=== PATIENT | male | born 1955 | race Caucasian/White ===

== ENCOUNTER 2017-06-09 12:34 | Observation (INO) | payer BC ==
--- NOTE | 2017-06-09 12:53 | CPEKG ---
Heart Rate: 60 RR Interval: 1000 P-R Interval: 132 QRSD Interval: 96 QT Interval: 444 QTC Interval: 444 P [place]: 50 QRS [place]: 58 T Wave [place]: 51 EKG Severity - OTHERWISE NORMAL ECG - EKG Impression: SINUS ARRHYTHMIA, RATE 52-72 Electronically Signed By: Hany Dalton 09-Jun-2017 14:33:52
--- NOTE | 2017-06-09 13:07 | EDPHY ---
H & P Stated Complaint: Here for possible pacemaker after abnl loop recorder reading on Sat Time Seen by Provider: 06/09/17 12:55 HPI/ROS: Chief Complaint: Syncope HPI: 62-year-old male had 2 syncopal episodes 2 days ago. He has history of syncope 2 years ago and had extensive workup by Dr. Sweeney which was negative. At that time he had an implantable heart monitor placed. He received phone call from his cardiology office today indicating that he had had 2 sinus pauses, 23 and 28 seconds in length. The instructed him to come the hospital to arrangements for pacemaker placement. Patient denies any injuries. He has felt normal since Friday. No fevers or chills. No chest pain. No shortness of breath. No palpitations. ROS: 10 point Review of Systems is negative except as noted in the HPI. PMH: Syncope Social History: Occasional cigars, occasional alcohol, occasional marijuana Family History: Patient is adopted Physical Exam: Gen: Awake, Alert, No Distress HEENT: Nose: no rhinorrhea Eyes: PERRLA, EOMI Mouth: Moist mucosa Neck: Supple, no JVD Chest: nontender, lungs clear to auscultation Heart: S1, S2 normal, no murmur Abd: Soft, non-tender, no guarding Back: no CVA tenderness, no midline tenderness Ext: no edema, non-tender Skin: no rash Neuro: CN II-XII intact, Sensation grossly intact, Strength 5/5 in bilateral upper and lower extremities - Personal History Current Tetanus Diphtheria and Acellular Pertussis (TDAP): No - Medical/Surgical History Hx Asthma: No Hx Chronic Respiratory Disease: No Hx Diabetes: No Hx Cardiac Disease: Yes Hx Renal Disease: No Hx Cirrhosis: No Hx Alcoholism: No Hx HIV/AIDS: No Hx Splenectomy or Spleen Trauma: No Other PMH: abnl heart rate - Social History Smoking Status: Never smoked Constitutional: Initial Vital Signs Temperature (C) 36.7 C 06/09/17 12:37 Heart Rate 58 L 06/09/17 12:37 Respiratory Rate 16 06/09/17 12:37 Blood Pressure 127/80 H 06/09/17 12:37 O2 Sat (%) 97 06/09/17 12:37 O2 Delivery Mode Room Air Allergies/Adverse Reactions: No Known Allergies Allergy (Verified 06/09/17 12:41) Home Medications: Medication Instructions Recorded Aspirin EC [Aspirin EC 81 mg (*)] 81 mg PO DAILY 06/09/17 Medical Decision Making - Diagnostics EKG Interpretation: ECG time 12:50 p.m. p.m.. Sinus arrhythmia with a rate of 60, normal axis, normal intervals, no acute ECG changes. ED Course/Re-evaluation: Discussed with Dr. Winkler. Patient to go to the laboratory veterinarian for pacemaker placement. Departure - Departure Disposition: To OP Cath/Surgery Clinical Impression: Syncope Condition: Fair Referrals: ABELINO CASTILLO [Primary Care Provider] - As per Instructions
[2017-06-09 13:19] LABS: % IMMATURE GRANULYOCYTES 0.5 % (0.0-1.1); ABSOLUTE IMMATURE GRANULOCYTES 0.03 10^3/uL (0.00-0.10); ADD DIFF? NO; ADD MORPH? NO; ADD SCAN? NO; ATYPICAL LYMPHOCYTE FLAG 10 (0-99); FRAGMENT RBC FLAG 0 (0-99); HEMATOCRIT 45.7 % (40.0-51.0); HEMOGLOBIN 16.1 g/dL (13.7-17.5); LEFT SHIFT FLG 0 (0-99); LIPEMIA HEMOLYSIS FLAG 90 (0-99); MEAN CELL HEMOGLOBIN CONCENTR. 35.2 g/dL (32.4-36.7); MEAN CELL VOLUME 93.6 fL (81.5-99.8); MEAN PLATELET VOLUME 10.6 fL (8.7-11.7); PLATELET CLUMPS FLAG 0 (0-99); PLATELET COUNT 200 10^3/uL (150-400); RED BLOOD CELL COUNT 4.88 10^6/uL (4.40-6.38); RED CELL DISTRIBUTION WIDTH 11.9 % (11.5-15.2)
[2017-06-09] MEDS ORDERED: BACITRACIN IRRIGATION/NS 50,000 UNITS/1,000 ML BTL IRR ONE (13:25)
[2017-06-09] MEDS ORDERED: DIAZEPAM 5 MG TAB PO ONE (13:25)
[2017-06-09] MEDS ORDERED: ceFAZolin 2 GM/SWFI 2 GM/20 ML SYR IVP ONE (13:25)
[2017-06-09] MEDS ORDERED: NS 1,000 ML IV ONE (13:25)
[2017-06-09] MEDS ORDERED: diphenhydrAMINE 25 MG CAP PO ONE (13:25)
[2017-06-09 13:28] LABS: ANION GAP 14 mEq/L (8-16); CALCIUM 9.3 mg/dL (8.5-10.4); CARBON DIOXIDE 27 mEq/l (22-31); CHLORIDE 103 mEq/L (97-110); CREATININE 0.9 mg/dL (0.7-1.3); GLOMERULAR FILTRATION RATE > 60; GLUCOSE 92 mg/dL (70-100); POTASSIUM 4.2 mEq/L (3.5-5.2); SODIUM 144 mEq/L (134-144)
[2017-06-09] MEDS ORDERED: MIDAZOLAM 2 MG/2 ML VIAL ONE ×3 (14:42→15:57)
[2017-06-09] MEDS ORDERED: fentaNYL 100 MCG/2 ML INJ ONE ×2 (14:42→15:29)
[2017-06-09] MEDS ORDERED: LIDOCAINE 1% 300 MG/30 ML SDV ONE ×2 (14:42→15:17)
[2017-06-09] MEDS ORDERED: LIDO/EPI 1% **for epidural** 30 ML SDV ONE (14:43)
[2017-06-09] MEDS ORDERED: BUPIVACAINE 0.5% 30 ML SDV ONE (14:43)
[2017-06-09] MEDS ORDERED: IOPAMIDOL (ISOVUE-300) 100 ML BTL ONE (14:44)
--- NOTE | 2017-06-09 15:02 | PDPROPOC ---
Sedation Plan of Care Sedation Plan of Care: vital signs stable, mental status noted, patient educated of risks, benefits, alternatives, patient can tolerate sedation ASA Classification: ASA 4 Planned drugs: fentanyl, midazolam Mallampati Score: Class 1 Mallampati Reference Image: Patient passed 3-3-2 rule?: Yes
--- NOTE | 2017-06-09 15:13 | PDGENHP ---
History and Physical - Chief Complaint Syncope - History of Present Illness Patient is a 62 y/o male with unremarkable past cardiovascular history (no CAD, HTN, HLP, or DM), who had a syncopal event over the weekend. During this event , the patient triggered his LINQ recorder. This morning, when down loading the data, it was noted that two, protracted pauses of beyond 20 seconds were noted. In light of these events, the patient was told to go to the ER for discussion about pacer. No cardiovascular complaints of chest pains or pressure. No PND or orthopnea. No prescription mediations. The last time similar event was noted was about two years ago (at the time that the LINQ was implanted). Since the event on Friday, the patient has not had any further symptoms. Family was present with the patient in the CVC today. History Information - Allergies/Home Medication List Allergies/Adverse Reactions: No Known Allergies Allergy (Verified 06/09/17 12:41) Home Medications: Aspirin EC [Aspirin EC 81 mg (*)] 81 mg PO DAILY 06/09/17 [Last Taken 06/08/17] Cholecalciferol Vit D3 [Vitamin D3 2000 units tab (OTC)] 10,000 units PO DAILY 06/09/17 [Last Taken 06/08/17] [place]-3 Fatty Acids [Fish Oil 1000 mg (*)] 2,000 mg PO DAILY 06/09/17 [Last Taken 06/08/17] I have personally reviewed and updated: family history, medical history, social history, surgical history - Past Medical History no pertinent PMH - Surgical History Reports: no pertinent surgical hx - Family History Positive for: non-pertinent - Social History Smoking Status: Current some day smoker Alcohol Use: None Drug Use: None Review of Systems Review of Systems: ROS: 10pt was reviewed & negative except for what was stated in HPI & below Constitutional: Reports: no symptoms EENMT: Reports: no symptoms Cardiac: Reports: syncope Respiratory: Reports: no symptoms Gastrointestinal: Reports: no symptoms Genitourinary: Reports: no symptoms Muscolosketal: Reports: no symptoms Skin: Reports: no symptoms Neurological: Reports: no symptoms Hematologic/Lymphatic: Reports: no symptoms Immunologic/Allergy: Reports: no symptoms Physical Exam Physical Exam: Temp Pulse Resp BP Pulse Ox 37.1 C 61 18 151/90 H 95 06/09/17 13:29 11/20/17 13:29 06/09/17 13:29 06/09/17 13:29 06/09/17 13:29 Constitutional: no apparent distress, appears nourished Eyes: PERRL Ears, Nose, Mouth, Throat: moist mucous membranes Cardiovascular: regular rate and rhythym, No systolic murmur, No JVD Peripheral Pulses: 2+: dorsalis-pedis (R), dorsalis-pedis (L) Respiratory: no respiratory distress Gastrointestinal: normoactive bowel sounds Skin: warm Musculoskeletal: full muscle strength, no muscle tenderness, normal joint ROM Neurologic: AAOx3, sensation intact bilaterally, CN II-XII Intact Psychiatric: interacting appropriately, not anxious, not encephalopathic Lab Data & Imaging Review 06/09/17 12:55 06/09/17 12:55 WBC 5.91 10^3/uL (3.80-9.50) 06/09/17 12:55 RBC 4.88 10^6/uL (4.40-6.38) 06/09/17 12:55 Hgb 16.1 g/dL (13.7-17.5) 06/09/17 12:55 Hct 45.7 % (40.0-51.0) 06/09/17 12:55 MCV 93.6 fL (81.5-99.8) 06/09/17 12:55 MCH 33.0 pg (27.9-34.1) 06/09/17 12:55 MCHC 35.2 g/dL (32.4-36.7) 06/09/17 12:55 RDW 11.9 % (11.5-15.2) 06/09/17 12:55 Plt Count 200 10^3/uL (150-400) 06/09/17 12:55 MPV 10.6 fL (8.7-11.7) 06/09/17 12:55 Neut % (Auto) 65.3 % (39.3-74.2) 06/09/17 12:55 Lymph % (Auto) 24.4 % (15.0-45.0) 06/09/17 12:55 [place] % (Auto) 8.3 % (4.5-13.0) 06/09/17 12:55 Eos % (Auto) 0.7 % (0.6-7.6) 06/09/17 12:55 Baso % (Auto) 0.8 % (0.3-1.7) 06/09/17 12:55 Nucleat RBC Rel Count 0.0 % (0.0-0.2) 06/09/17 12:55 Absolute Neuts (auto) 3.86 10^3/uL (1.70-6.50) 06/09/17 12:55 Absolute Lymphs (auto) 1.44 10^3/uL (1.00-3.00) 06/09/17 12:55 Absolute Monos (auto) 0.49 10^3/uL (0.30-0.80) 06/09/17 12:55 Absolute Eos (auto) 0.04 10^3/uL (0.03-0.40) 06/09/17 12:55 Absolute Basos (auto) 0.05 10^3/uL (0.02-0.10) 06/09/17 12:55 Absolute Nucleated RBC 0.00 10^3/uL (0-0.01) 06/09/17 12:55 Immature Gran % 0.5 % (0.0-1.1) 06/09/17 12:55 Immature Gran # 0.03 10^3/uL (0.00-0.10) 06/09/17 12:55 Sodium 144 mEq/L (134-144) 06/09/17 12:55 Potassium 4.2 mEq/L (3.5-5.2) 06/09/17 12:55 Chloride 103 mEq/L (97-110) 06/09/17 12:55 Carbon Dioxide 27 mEq/l (22-31) 06/09/17 12:55 Anion Gap 14 mEq/L (8-16) 06/09/17 12:55 BUN 15 mg/dL (7-23) 06/09/17 12:55 Creatinine 0.9 mg/dL (0.7-1.3) 06/09/17 12:55 Estimated GFR > 60 06/09/17 12:55 Glucose 92 mg/dL (70-100) 06/09/17 12:55 Calcium 9.3 mg/dL (8.5-10.4) 06/09/17 12:55 Assessment & Plan Assessment: Syncope (Acute) Patient is a 62 y/o male with a syncopal event over the weekend. LINQ device recorded two >20 second pauses. No further symptoms since. Patient has been scheduled for PPM today. Plan: PPM implant today. LINQ explant prior.
[2017-06-09 15:36] LABS: INR 1.04 (0.83-1.16); PROTIME(PATIENT) 13.5 SEC (12.0-15.0)
[2017-06-09] MEDS ORDERED: ACETAMINOPHEN 325 MG TAB PO PRN (17:15)
[2017-06-09] MEDS ORDERED: TEMAZEPAM 15 MG CAP PO PRN (17:16)
--- NOTE | 2017-06-09 17:36 | SUROPNOTE ---
[facility] Operative Report - Surgery PROCEDURE (1) LINQ EXPLANT (2) PPM IMPLANT (3) VENOGRAM INDICATION: Protracted pause (>20 seconds) noted on LINQ monitor PROCEDURE DETAILS: After consent was obtained, the patient was brought to the cardiac label folder and placed on table in usual sterile fashion. Lidocaine was used for local anesthetic to the region of the LINQ. A small incision to the medial aspect of the LINQ was made, and the device was explanted (SN: [id number]). Four leigh ann were used to close the small incision. Scrub was broken, and the patient was redressed for the second procedure. A venogram was performed to isolate the left subclavian vein. Lidocaine was used for the left subclavian region. Two separate sticks were performed without difficulty into the left subclavian vein. Following this procedure, a small pocket was created and the wires were pulled into the pocket. A pocket was created using blunt dissection and a visitech soaked in Bacitracin was placed into the pocket. The ventricular lead was placed first under fluoroscopy viewing. RV lead S#: [id number] and sutured into position capture was at 0.5V@ 0.5 ms, 0.6 mA and sensing was 8.2 mV 2.3 V/s with imp at 529 ohms The atrial lead was placed second under fluoroscopy RA lead S#: [id number] and sutured into position capture was at 0.7V@ 0.5 ms, 1.4 mA and sensing was 3.7 mV 1.3 V/s and imp at 487 ohm The visitech was explanted and the pocket was inspected for haemostasis. The device was implanted and sutured into position after aggressive pocket flushing with bacitracin. The pocket was closed with 4-0, 3-0, 2-0 No complications were appreciated CXR this evening (post) and in the morning (PA and LAT) are pending AM interrogation also pending.
--- NOTE | 2017-06-09 18:01 | CPEKG ---
Heart Rate: 51 RR Interval: 1176 P-R Interval: 128 QRSD Interval: 86 QT Interval: 452 QTC Interval: 417 P [place]: 33 QRS [place]: 60 T Wave [place]: 39 EKG Severity - NORMAL ECG - EKG Impression: SINUS RHYTHM Electronically Signed By: Krunal Camargo 10-Jun-2017 15:39:36
[2017-06-09 23:43] VITALS: TEMP 98.1
[2017-06-10 06:03] LABS: % IMMATURE GRANULYOCYTES 0.3 % (0.0-1.1); ABSOLUTE IMMATURE GRANULOCYTES 0.02 10^3/uL (0.00-0.10); ADD DIFF? NO; ADD MORPH? NO; ADD SCAN? NO; ATYPICAL LYMPHOCYTE FLAG 0 (0-99); FRAGMENT RBC FLAG 0 (0-99); HEMATOCRIT 40.9 % (40.0-51.0); HEMOGLOBIN 14.1 g/dL (13.7-17.5); LEFT SHIFT FLG 0 (0-99); LIPEMIA HEMOLYSIS FLAG 90 (0-99); MEAN CELL HEMOGLOBIN 32.1 pg (27.9-34.1); MEAN CELL HEMOGLOBIN CONCENTR. 34.5 g/dL (32.4-36.7); MEAN CELL VOLUME 93.2 fL (81.5-99.8); MEAN PLATELET VOLUME 11.5 fL (8.7-11.7); PLATELET CLUMPS FLAG 0 (0-99); PLATELET COUNT 169 10^3/uL (150-400); RED BLOOD CELL COUNT 4.39 10^6/uL (4.40-6.38); RED CELL DISTRIBUTION WIDTH 11.9 % (11.5-15.2)
[2017-06-10 06:22] LABS: ANION GAP 13 mEq/L (8-16); CALCIUM 8.9 mg/dL (8.5-10.4); CARBON DIOXIDE 23 mEq/l (22-31); CHLORIDE 106 mEq/L (97-110); CREATININE 0.9 mg/dL (0.7-1.3); GLOMERULAR FILTRATION RATE > 60; GLUCOSE 84 mg/dL (70-100); POTASSIUM 4.2 mEq/L (3.5-5.2); SODIUM 142 mEq/L (134-144)
[2017-06-10] MEDS ORDERED: FLU VACC QS 2017-18 (3YR+)/PF 0.5 ML SYR (FLUARIX QUAD) IM ONE (07:23)
[2017-06-10] MEDS ORDERED: PNEUMOCOCCAL 0.5ML VACCINE VIAL IM ONE (07:23)
[2017-06-10 07:54] VITALS: BP 142/99; PULSE 60; RESP 14; O2SAT 95
--- NOTE | 2017-06-10 08:39 | CPEKG ---
Heart Rate: 71 RR Interval: 845 P-R Interval: 132 QRSD Interval: 88 QT Interval: 392 QTC Interval: 426 P [place]: 57 QRS [place]: 70 T Wave [place]: 46 EKG Severity - NORMAL ECG - EKG Impression: SINUS RHYTHM Electronically Signed By: Krunal Camargo 10-Jun-2017 15:39:31
[2017-06-10] MEDS ORDERED: ASPIRIN EC 81 MG TAB PO SCH (09:00)
--- NOTE | 2017-06-10 12:41 | GDS ---
[f rep st] DISCHARGE SUMMARY ADMISSION DIAGNOSES: 1. Syncope. 2. Twenty-three seconds of noted asystole on LINQ monitor. DISCHARGE DIAGNOSES: 1. Twenty-three seconds of asystole. 2. Status post permanent pacemaker implantation. PROCEDURES DONE DURING HOSPITALIZATION: 1. Electrocardiogram. 2. Permanent pacemaker implantation, [employer] [place] device with [employer] [place] atrial and ventricular lead impla ntation. 3. LINQ explant. 4. Chest x-ray. BRIEF HISTORY: Please see H and P. Briefly, the patient is a 62-year-old male with unremarkable car diovascular history, with reporting ongoing syncopal events, with previous loop recorder implantation , recently had a syncopal event over the weekend, noted to be 23 seconds of asystole. Due to his syn copal event, and significant pauses noted on LINQ recorder, he was brought to the hospital for perman ent pacemaker implantation. HOSPITAL COURSE: The patient was admitted through CVC, prepped for procedure, and taken to the [facility] catheterization lab, where Dr. Winkler successfully implanted a dual-chamber [employer] [place] pacemaker wit h atrial and ventricular leads, both [place]. No complications. The patient was taken back to e CVC, and ultimately to the PCU for overnight observation. Throughout the night, the patient has re mained in sinus rhythm with no malignant arrhythmias or pauses noted. He denies any chest pain or sh ortness of breath. He has been up and walking the unit without difficulties. PHYSICAL EXAMINATION: GENERAL APPEARANCE: A medium built, well-groomed, male. He is aler t and oriented to person, place, time, situation. Appears to be under no acute distress. CURRENT CEZAR SIGNS: Blood pressure 142/83, heart rate is 60, currently sinus rhythm, respirations 14, saturat ing 95%, temperature 36.7 degrees Celsius. HEENT: Head is normocephalic. Lips, tongue are pink and moist with no signs of cyanosis. Conjunctivae pink. NECK: Trachea is midline, +2 carotid pulses b ilateral. No auscultated bruits. No jugular vein distention. RESPIRATORY: Lungs clear to ausculta tion. No rhonchi, rales or wheezes. No accessory muscle use. No intercostal muscle retraction note d. CARDIAC: Regular rate, regular rhythm. S1, S2. No S3, S4, gallops, rubs or murmur noted. ABDO MEN: Soft, nontender, bowel sounds x4 quadrants. No organomegaly. No palpable masses. SKIN: [place] , warm, dry. No cyanosis. No clubbing. No peripheral edema. VASCULAR: +2 carotids bilateral, +2 radials bilateral, +2 dorsal pedal and posterior tibial pulses bilateral. Pacemaker insertion site, left anterior chest just distal clavicle incision intact with Steri-Strips, more medial at left anter ior chest. LINQ recorder removal and incision. Incision intact with leigh ann. Both sites without re dness, swelling, drainage, ecchymosis or hematoma. Dressing change done on both sites at this time. LABORATORY STUDIES: Laboratory studies drawn today show WBC 6.47, hemoglobin 14.1, hematocrit of 40. 9, platelet count of 169, sodium is 142, potassium 4.2, chloride 106, CO2 of 23, BUN 18, creatinine 0 .9, glucose 84, calcium 8.9. STUDIES: Permanent pacemaker implantation, as mentioned above. Chest x-ray done this morning showin g no delayed pneumothorax. No acute cardiopulmonary process. Electrocardiogram done this morning sh owing full sinus rhythm, normal axis. No ST or T-wave abnormalities suggesting of ischemia. [facility] Des[facility] e rep interrogated the pacemaker this morning, showing normal device functioning. DISCHARGE DISPOSITION: The patient will be discharged home in stable condition. He is under activit y restrictions of not lifting more than 10 pounds for the next week, and no strenuous activities for the next 2 weeks. He is also not to lift the left arm higher than shoulder height for the next 6 wee ks. He is encouraged to use a shoulder immobilizer for the next 48 hours and p.r.n. for the next 6 w eeks. DISCHARGE MEDICATIONS: Please see discharge med reconciliation sheet. DISCHARGE INSTRUCTIONS: Post permanent pacemaker implantation. Discharge instructions went over wit h the patient including monitoring for signs of infection, activity restrictions, shoulder immobiliza tion use, medication compliancy. The patient has a followup device check set for next week, and foll owup appointment with Dr. Winkler on June 27. At the time of discharge, the patient and his v erbalized understanding of all instructions and have no questions. They are told that if any problem s or concerns post discharge, they are to call our office or return to the hospital. Total time spent on discharge greater than 30 minutes. /[id number]/MODL
--- NOTE | 2017-06-10 15:24 | ASDISCHSUM ---
Discharge Information Plan Status:Home with No Needs Medically Cleared to Leave:06/09/2017 Discharge Date:06/10/2017 10:41 AM CM D/C Disposition:Home, Routine, Self-Care ADT D/C Disposition:Home, Routine, Self-Care Projected Discharge Date:06/10/2017 10:41 AM Transportation at D/C:Family Discharge Delay Reason: Follow-Up Date:06/10/2017 10:41 AM Discharge Slot: Final Diagnosis: Placement Information Patient Contact Information Contact Name:JOSE Relationship:Friend Address: Work Phone: City: [facility] Phone: [facility] Bus Code: Email: Financial Information Financial Class:HMO and PPO Plans Primary Plan Desc: OUT OF STATE PPO Primary Plan Number:[id number] Secondary Plan Desc: Secondary Plan Number: Assessment Information Intervention Information
== END 2017-06-10 10:41 | disposition home or self-care (01) ==
LOC: F2W 14:28
PROVIDERS: ADMIT Internal Medicine Cardiovascular Disease; ATTEND Internal Medicine Cardiovascular Disease
PROC: 02H63JZ Insertion of Pacemaker Lead into Right Atrium, Percutaneous Approach (ICD-10-PCS; principal; 2017-06-09)
PROC: 02HK3JZ Insertion of Pacemaker Lead into Right Ventricle, Percutaneous Approach (ICD-10-PCS; principal; 2017-06-09)
PROC: 0JH606Z Insertion of Pacemaker, Dual Chamber into Chest Subcutaneous Tissue and Fascia, Open Approach (ICD-10-PCS; principal; 2017-06-09)
PROC: 0JPT02Z Removal of Monitoring Device from Trunk Subcutaneous Tissue and Fascia, Open Approach (ICD-10-PCS; principal; 2017-06-09)
DX: I49.5 Sick sinus syndrome (principal); R55 Syncope and collapse; Z23 Encounter for immunization
CPT/HCPCS: 33208; 33284; 71010; 71020; 90471; 93005; G0378; C1785; C1898; G0008; G0009; J0690; J2250; J3010; Q9967